=== PATIENT | male | born 1965 | race Caucasian/White ===

== ENCOUNTER 2016-06-08 08:31 | Emergency (ER) | payer OTHER ==
[~2016-06-08] VITALS: Ht 180.3 cm; Wt 80.0 kg
[~2016-06-08 08:31] MED LIST: AMOX500T PO; BENZ1CAP34 PO; LIDO2%S2 PO; MULT-65 PO; PRAV20 PO; Z.0.NO CURRENT MEDS
[2016-06-08 08:33] VITALS: BP 149/82; PULSE 81; RESP 15; TEMP 97.9; O2SAT 98
--- NOTE | 2016-06-08 09:48 | PD ---
HPI Chief Complaint: Injury Time Seen by Provider: 09:38 Travel History International Travel<30 days: Yes Contact w/Intl Traveler<30days: Yes Name of Country Traveled to: [facility] 05/25/16 Traveled to known affect area: Yes History of Present Illness HPI 50-year-old male presents to the ED for evaluation of left musculoskeletal chest pain. Patient states he was wrestling with one of his children last night. He felt a pop under the left arm and across the chest. The patient states that he "tore my pec." Patient endorses pain with attempted range of motion of the left arm. Also endorses some weakness of the left arm. Patient denies numbness, tingling. Denies previous injury to the area. He states that he has a follow-up appointment with Dr. Barraza in a few weeks. Denies chronic health problems. Takes no daily medications. PFSH Past Medical History Cardiac Catheterization: Yes (2007 AND WHEN HE WAS 13 YEARS OLD.) Cardiomyopathy: Yes Thyroid Disease: Yes Past Surgical History Abdominal Surgery: Yes (HERNIA REPAIR) Social History Alcohol Use: Yes (2 X MONTH) Tobacco Use: No Allergies-Medications (Allergen,Severity, Reaction): Coded Allergies: No Known Allergies (Verified , 06/08/16) Reported Meds & Prescriptions Reported Meds & Active Scripts Active Lortab (Hydrocodone-Acetaminophen) 5-325 Mg Tab 1 Tab PO Q6H PRN Ibuprofen 800 Mg Tab 800 Mg PO Q8H PRN Review of Systems Except as stated in HPI: all other systems reviewed are Neg Physical Exam Narrative GENERAL: Well-nourished, well-developed white male in no acute distress. SKIN: Warm and dry. HEAD: Normocephalic. EYES: No scleral icterus. No injection or drainage. NECK: Supple, trachea midline. No JVD or lymphadenopathy. CARDIOVASCULAR: Regular rate and rhythm without murmurs, gallops, or rubs. RESPIRATORY: Breath sounds equal bilaterally. No accessory muscle use. GASTROINTESTINAL: Abdomen soft, non-tender, nondistended. MUSCULOSKELETAL: No cyanosis, or edema. There is mild deformity and tenderness of the left pectoral muscle. FOCUSED LEFT UPPER EXTREMITY EXAM: Tender to palpation at the bicipital groove of the left humerus. The patient is able to abduct the arm to approximately 40 . He can extend the arm to approximately 45. Strong frame stylist strength. 2+ radial pulse. Sensation intact to light touch distally. BACK: Nontender without obvious deformity. No CVA tenderness. Data Data Last Documented VS Vital Signs Date Time Temp Pulse Resp B/P Pulse Ox O2 Delivery O2 Flow Rate FiO2 06/08/16 08:33 97.9 81 15 149/82 98 MDM Medical Decision Making Medical Screen Exam Complete: Yes Emergency Medical Condition: Yes Differential Diagnosis Muscle sprain versus pectoralis tear versus tendinous injury versus other Narrative Course 50-year-old male presents to the ED for evaluation of left musculoskeletal chest pain. Patient states he was wrestling with one of his children last night. He felt a pop under the left arm and across the chest. The patient states that he "tore my pec." Patient endorses pain with attempted range of motion of the left arm. Also endorses some weakness of the left arm. Patient denies numbness, tingling. Denies previous injury to the area. Vitals reviewed. Physical exam reveals a nontoxic-appearing white male in no acute distress. There is some deformity and tenderness of the left pectoralis muscle. Tender to palpation at the bicipital groove of the left humerus. The patient is able to abduct the arm to approximately 40, extension to approximately 45. Strong frame stylist strength. 2+ radial pulse. Sensation intact to light touch distally. This is rupture of the pectoralis major muscle. The patient is requesting emergent MRI. I informed the patient that there is no emergent indication for this test, that outpatient follow-up with the orthopedist was required for further evaluation. The patient does have an appointment with Dr. Barraza in the next 2 weeks. He is quite anxious to return to work. The patient arrived with his arm in a sling. He is instructed to remain in the sling, he was provided with pain medications and outpatient referral to the on-call orthopedist. The patient again requested inpatient MRI. He states that he is afraid that he will be lost to follow-up. Again I reinforced symptomatic care, outpatient follow-up with the orthopedist. I provided him with an excuse for work for the upcoming week. The patient indicated understanding of the instructions. He is stable and discharged home. Diagnosis Primary Impression: Rupture of pectoralis major muscle Qualified Code: S29.011A - Rupture of pectoralis major muscle, initial encounter Referrals: Wang Christina MD Patient Instructions: General Instructions, Muscle Strain (ED) Departure Forms: Tests/Procedures, Work Release Enter return to work date: Jun 18, 2016 Special Instructions: No heavy use of the left arm until cleared by orthopedics. Additional Instructions: Rest, ice, elevate the extremity. KEEP THE LEFT ARM IN IN THE SPLINT until released by orthopedist. Apply ice no longer than 10-15 minutes per hour 3-5 times a day. 800 mg ibuprofen up to 3 times a day as needed for pain. Lortab as needed for pain 6 through 10 on the pain scale. Return to normal, gentle activity as tolerated. No heavy lifting or overuse of the left arm until cleared by orthopedist. The orthopedist may prescribe outpatient MRI for further evaluation of your pectoral muscle tear. Follow up with the orthopedist this week. Return to the ED for any urgent or emergent medical condition. Med/Other Pt SpecificInfo: Prescription(s) given Scripts Hydrocodone-Acetaminophen (Lortab)5-325 Mg Tab1 Tab PO Q6H PRN (PAIN SCALE 6 TO 10) #10 TAB Ref 0 Prov:Yael Morales DO 06/08/16 Ibuprofen 800 Mg [id number] Mg PO Q8H PRN (Pain/Inflammation) #20 TAB Ref 0 Prov:Yael Morales DO 06/08/16 Disposition: 01 DISCHARGE HOME Condition: Stable Daria Jay Jun 08, 2016 09:48
[2016-06-08] MEDS ORDERED: IBUP800T23 PO (09:54)
[2016-06-08] MEDS ORDERED: HYDR-3533 PO ×2 (09:54→09:56)
== END 2016-06-08 10:53 | disposition home or self-care (01) ==
LOC: NEPB 08:31
DX: S29.011A Strain of muscle and tendon of front wall of thorax, initial encounter (principal); Y93.72 Activity, wrestling; Y93.59 Activity, other involving other sports and athletics played individually; Y92.9 Unspecified place or not applicable; Y99.9 Unspecified external cause status
CPT/HCPCS: 99283

== ENCOUNTER → 2016-06-22 | Day surgery (SDC) | payer OTHER ==
[~2016-06-22] MED LIST changes: -AMOX500T PO; -BENZ1CAP34 PO; +BUPIVACAINE HCL PF 0.75% 30 ML VIAL ONE; +HYDR-3533 PO; +IBUP800T23 PO; +LACTATED RINGER'S 1000 ML INJ 1,000 ML ONE; -LIDO2%S2 PO; +LIDOCAINE 1.5%/EPINEPHrine 1:200,000 PF SOLN 30 ML AMP ONE; +MEPERIDINE HCL 50 MG/ML VIAL ONE; +MIDAZOLAM HCL 5 MG/ML VIAL (1 ML) ONE; -MULT-65 PO; +ONDANSETRON HCL 4 MG/2 ML VIAL IV PUSH ONE; -PRAV20 PO; +PROPOFOL 200 MG/20 ML AMP IV ONE; -Z.0.NO CURRENT MEDS; +ceFAZolin 2 GM PREMIX 50 ML ONE
--- NOTE | 2016-06-24 08:15 | MP ---
cc: JOHNSON COSTELLO DATE OF SURGERY: 06/22/2016 PREOPERATIVE DIAGNOSIS: Left pectoralis major tendon rupture. POSTOPERATIVE DIAGNOSES Left pectoralis major tendon rupture. PROCEDURE Surgical repair left pectoralis major tendon rupture. SURGEON Dr. Johnson Costello MAKING DEPARTMENT PREPARER BORA Rios ANESTHESIA General with interscalene block. ESTIMATED BLOOD LOSS 50 ccs. COMPLICATIONS None. IMPLANTS Arthrex. 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 He sustained traumatic injury to his left arm with complete rupture and detachment of the pectoralis major tendon off the humerus. He was evaluated by the undersigned at the [facility]. Clinical exam as well as MRI confirmed the above-named findings. The patient was counseled as to the risks, benefits and alternatives of the above-named proposed surgical procedure and he did wish to proceed with surgery. PROCEDURE IN DETAIL A written consent was obtained. The patient was identified by name, taken to the operating room and placed supine on the operating table. General anesthesia was administered as well as 2 grams of IV Ancef. The patient was then carefully placed in a beach-chair position. All bony pressure points and bony prominences were well padded. The left shoulder and left upper extremity was prepped and draped using isopropyl alcohol, Hibiclens solution and DuraPrep solution. After appropriate time-out was performed a longitudinal incision was made over the anterior aspect of the left shoulder. The clavipectoral fascia was explored and a complete rupture detachment of the sternal head of the pectoralis major tendon was identified. There was significant scarring retraction, tendon was mobilized. A #2 fiber tape suture was placed in a Krackow whipstitch pattern through the anterior mid and superior portions of the tendon. At this point the region of the humerus at the insertion site was identified. A curette and elevator was used to elevate the soft tissues and a rasp was used to repair the bone. Subsequently three drill holes were placed within the humerus and three Arthrex flip anchors were inserted in the humerus after suture was placed at the eyelet of each anchor. The sutures were tied sequentially repairing the tendon to bone. There was a double row backup fixation performed with placement of a lateral drill hole and the eyelet of a Arthrex 4.75 mm anchor. The eyelet was impacted into bone to allow for double row backup fixation. The bone would not accept a swivel lock anchor but the eyelet showed excellent fixation and I pulled on it with significant force and it showed excellent fixation, the tendon appeared to have good purchase onto bone with good approximation and no gap formation. The surgical wound was thoroughly irrigated with sterile saline solution. The subcutaneous layer was closed with 3-0 Vicryl suture. Skin was closed with Dermabond. Sterile dressing was applied. The patient was placed in a sling and swath immobilizer. He tolerated the procedure well with no intraoperative complications noted. Lanre Walsh, physician medical lab assistant certified was present for the entire procedure to include patient positioning, the procedure itself. The medical necessity of physician medical lab assistant was indicated in the case due to complexity of the procedure, he assisted with appropriate manipulation of the arm and also retraction of muscle, tendon, bone, neurovascular structures. He assisted with mobilization of tendon and also implantation of suture anchors for surgical repair. MD JACQUELIN Patterson/JACKIE /1:02 PM /7:58 AM
== END | disposition home or self-care (01) ==
LOC: ESDC 10:34
PROVIDERS: ATTEND Orthopaedic Surgery Sports Medicine
DX: S29.011A Strain of muscle and tendon of front wall of thorax, initial encounter (principal)
CPT/HCPCS: 01710; 01991; 24341; 64417; C1713; J0690; J2175; J2250; J2405; J7120

== ENCOUNTER → 2016-11-30 | Outpatient (CLI) | payer OTHER ==
[~2016-11-30] MED LIST changes: -BUPIVACAINE HCL PF 0.75% 30 ML VIAL ONE; -LACTATED RINGER'S 1000 ML INJ 1,000 ML ONE; -LIDOCAINE 1.5%/EPINEPHrine 1:200,000 PF SOLN 30 ML AMP ONE; -MEPERIDINE HCL 50 MG/ML VIAL ONE; -MIDAZOLAM HCL 5 MG/ML VIAL (1 ML) ONE; -ONDANSETRON HCL 4 MG/2 ML VIAL IV PUSH ONE; -PROPOFOL 200 MG/20 ML AMP IV ONE; -ceFAZolin 2 GM PREMIX 50 ML ONE
[2016-11-30 08:24] LABS: MEAN CELL VOLUME 93.1 FL (80.0-100.0); MEAN CORPUSCULAR HEMOGLOBIN 31.1 PG (27.0-34.0); MEAN CORPUSCULAR HGB CONC 33.4 % (32.0-36.0); PLATELET COUNT 207 TH/MM3 (150-450); RED BLOOD COUNT 4.62 MIL/MM3 (4.50-5.90); RED CELL DISTRIBUTION WIDTH 11.7 % (11.6-17.2); REVIEW FLAG FINAL; WHITE BLOOD COUNT 4.5 TH/MM3 (4.0-11.0)
[2016-11-30 08:52] LABS: ANION GAP 6 MEQ/L (5-15); AST (GOT) 30 U/L (15-37); BICARBONATE 27.2 MEQ/L (21.0-32.0); BLOOD UREA NITROGEN 19 MG/DL (7-18); CHLORIDE 105 MEQ/L (98-107); GLOMERULAR FILTRATION RATE 80 ML/MIN (>89); GLUCOSE,FASTING 91 MG/DL (74-99); POTASSIUM 3.8 MEQ/L (3.5-5.1); SODIUM (NA) 138 MEQ/L (136-145)
[2016-11-30 08:53] LABS: ALT (GPT) 37 U/L (12-78)
[2016-11-30 09:02] LABS: ALKALINE PHOSPHATASE 76 U/L (45-117); FREE T4 0.85 NG/DL (0.76-1.46); TOTAL BILIRUBIN ADULT 1.7 MG/DL (0.2-1.0)
== END ==
LOC: CLAB 07:45
PROVIDERS: ATTEND Family Medicine
DX: E78.5 Hyperlipidemia, unspecified (principal); E03.9 Hypothyroidism, unspecified; Z12.11 Encounter for screening for malignant neoplasm of colon
CPT/HCPCS: 36415; 80053; 84153; 84439; 84443; 85027